=== PATIENT | male | born 1955 | race Caucasian/White ===

== ENCOUNTER 2018-07-22 08:34 | Emergency (ER) | payer OTHER ==
--- NOTE | 2018-07-22 09:20 | EDPHY ---
H & P Time Seen by Provider: 07/22/18 08:42 HPI/ROS: CHIEF COMPLAINT: Chest pain, shortness of breath HISTORY OF PRESENT ILLNESS: The patient is a 62-year-old male who presents emergency department with intermittent chest pain for the past few weeks. The patient states his chest pain comes and goes. It does not occur every day. When it happens it is present for a few minutes. It does not seem to be associated with exercise. Patient lifts weights every morning and moderate exercise in the afternoon with no symptoms. Patient has intermittent shortness of breath which he attributes to his COPD. He states this is baseline. He denies any other associated symptoms. He has no nausea or vomiting. No leg pain or swelling. REVIEW OF SYSTEMS: 10 systems were reveiwed and are negative with the exception of the elements mentioned in the history of present illness. Past Medical/Surgical History: Includes COPD Social history: The patient is a remote smoker. He does not use THC regularly. Smoking Status: Former smoker Physical Exam: Vitals noted GENERAL: Well-appearing, in no acute distress, alert. Fit appearing. HEENT: Eyes normal to inspection, normal pharynx, no signs of dehydration. NECK: Normal, supple. RESPIRATORY: Clear to auscultation bilaterally, no rales, rhonchi or wheezing. CVS: Regular rate and rhythm, no rubs, murmurs, or gallops. ABDOMEN: Soft, nontender, nondistended, no organomegaly. BACK: Normal to inspection, no CVA tenderness. SKIN: Normal color, no rash, warm, dry. No pallor. EXTREMITIES: No pedal edema, no calf tenderness, no Homans sign or cords, no joint swelling. NEURO/PSYCH: Alert and oriented, normal mood and affect, normal motor sensory exam. Constitutional: Initial Vital Signs Temperature (C) 36.7 C 07/22/18 08:39 Heart Rate 72 07/22/18 08:39 Respiratory Rate 16 07/22/18 08:39 Blood Pressure 124/78 H 07/22/18 08:39 O2 Sat (%) 97 07/22/18 08:39 O2 Delivery Mode Room Air Allergies/Adverse Reactions: No Known Allergies Allergy (Unverified 07/22/18 08:39) Home Medications: Medication Instructions Recorded Valtrex 07/22/18 Medical Decision Making - Diagnostics Imaging Results: Imaging Impressions Chest X-Ray 07/22/18 08:57 Impression: Clear lungs. No acute process. ED Course/Re-evaluation: In the emergency department I discussed possible etiologies with the patient. I answered all his questions. IV was placed. Laboratory studies, EKG and chest x-ray were obtained. Patient was given aspirin orally. The patient denies chest pain currently. D-dimer was not included in the patient's workup. The patient's Wells criteria is low risk. His perc rules are negative. EKG shows normal sinus rhythm, normal rate, normal axis, normal intervals. There are no ST or T-wave abnormalities. EKG is normal as interpreted by me. CBC and chemistry unremarkable. Troponin is negative. I rechecked the patient. He was chest pain-free. He was doing well. A consultation order was placed for [facility]. Patient was given warnings prior to leaving. He will return with worsening symptoms. Differential Diagnosis: My differential includes but is not limited to ACS, acute IN, pulmonary embolus , pericarditis, myocarditis, pleurisy, GERD, peptic ulcer disease - Data Points Laboratory Results: Laboratory Results 07/22/18 08:55 07/22/18 08:55 07/22/18 07/22/18 07/22/18 09:03 08:55 08:55 WBC 5.61 10^3/uL 10^3/uL (3.80-9.50) RBC 5.26 10^6/uL 10^6/uL (4.40-6.38) Hgb 15.9 g/dL g/dL (13.7-17.5) Hct 47.2 % % (40.0-51.0) MCV 89.7 fL fL (81.5-99.8) MCH 30.2 pg pg (27.9-34.1) MCHC 33.7 g/dL g/dL (32.4-36.7) RDW 12.5 % % (11.5-15.2) Plt Count 207 10^3/uL 10^3/uL (150-400) MPV 9.4 fL fL (8.7-11.7) Neut % (Auto) 66.1 % % (39.3-74.2) Lymph % (Auto) 22.5 % % (15.0-45.0) Marshall % (Auto) 9.6 % % (4.5-13.0) Eos % (Auto) 0.7 % % (0.6-7.6) Baso % (Auto) 0.7 % % (0.3-1.7) Nucleat RBC Rel Count 0.0 % % (0.0-0.2) Absolute Neuts (auto) 3.71 10^3/uL 10^3/uL (1.70-6.50) Absolute Lymphs (auto) 1.26 10^3/uL 10^3/uL (1.00-3.00) Absolute Monos (auto) 0.54 10^3/uL 10^3/uL (0.30-0.80) Absolute Eos (auto) 0.04 10^3/uL 10^3/uL (0.03-0.40) Absolute Basos (auto) 0.04 10^3/uL 10^3/uL (0.02-0.10) Absolute Nucleated RBC 0.00 10^3/uL 10^3/uL (0-0.01) Immature Gran % 0.4 % % (0.0-1.1) Immature Gran # 0.02 10^3/uL 10^3/uL (0.00-0.10) Sodium 136 mEq/L mEq/L (135-145) Potassium 4.8 mEq/L mEq/L (3.5-5.2) Chloride 101 mEq/L mEq/L (97-110) Carbon Dioxide 25 mEq/l mEq/l (22-31) Anion Gap 10 mEq/L mEq/L (6-14) BUN 22 mg/dL mg/dL (7-23) Creatinine 1.1 mg/dL mg/dL (0.7-1.3) Estimated GFR > 60 Glucose 93 mg/dL mg/dL (70-100) Calcium 9.8 mg/dL mg/dL (8.5-10.4) POC Troponin I 0.00 ng/mL ng/mL (0.00-0.08) Point of Care Test Results: Chemistry 07/22/18 09:03 POC Troponin I 0.00 ng/mL ng/mL (0.00-0.08) Departure - Departure Disposition: Home, Routine, Self-Care Clinical Impression: Chest pain Qualifiers: Chest pain type: unspecified Qualified Code(s): R07.9 - Chest pain, unspecified Condition: Good Instructions: Chest Pain (ED) Additional Instructions: Return with increasing chest pain, shortness of breath, fever or any other concerns. Referrals: Vinicius Frank MD [Primary Care Provider] - 5-7 days, call [facility] appt. [facility] - 1-2 days without fail
[2018-07-22 09:27] LABS: PLATELET COUNT 207 10^3/uL (150-400)
[2018-07-22 10:17] VITALS: BP 92/73
--- NOTE | 2018-07-22 14:46 | CPEKG ---
Test Reason : OPEN Blood Pressure : / mmHG Vent. Rate : 082 BPM Atrial Rate : 085 BPM P-R Int : 154 ms QRS Dur : 090 ms QT Int : 370 ms P-R-T Axes : 051 -22 030 degrees QTc Int : 432 ms Sinus rhythm Borderline left axis deviation Confirmed by Michael Kitchen ([id number] on 07/22/2018 2:46:27 PM Referred By: MICHAEL KITCHEN Confirmed By:Michael Kitchen
== END 2018-07-22 10:16 | disposition home or self-care (01) ==
DX: R07.9 Chest pain, unspecified (principal); J44.9 Chronic obstructive pulmonary disease, unspecified; Z87.891 Personal history of nicotine dependence
CPT/HCPCS: 84484-ER